=== PATIENT | female | born 1980 | race Asian ===

== ENCOUNTER 2024-11-04 17:28 | Inpatient (IN) | payer OTHER ==
[2024-11-04] MEDS ORDERED: NA CHLORIDE 0.9% 1,000 ML ONE ×2 (18:27→22:37)
[2024-11-04] MEDS ORDERED: ONDANSETRON 4 MG/2 ML VIAL ONE (18:27)
[2024-11-04] MEDS ORDERED: KETOROLAC 30 MG/ML INJ ONE (18:27)
[2024-11-04 18:46] LABS: Absolute Basophils 0.1 K/uL (0-0.5); Absolute Monocytes 0.4 K/uL (0.1-1.3); Absolute Neutrophil 11.3 K/uL (1.8-8.0); Basophils % 0.4 % (0-1.3); Eosinophils % 0.3 % (0-4.4); Hematocrit 37.1 % (36.0-45.0); Hemoglobin 11.3 g/dL (12.0-15.0); Lymphocytes % 8.2 % (15.3-44.8); MCH 21.2 pg (27.0-35.0); MCHC 30.4 g/dL (32.0-36.0); MCV 69.7 fL (80-100); MPV 8.7 fL (7.6-11.3); Monocytes % 2.9 % (3.3-12.3); Neutrophils % 88.2 % (41.7-73.7); Platelets 357 thou/uL (152-406); RBC Red Blood Cell Count 5.33 M/uL (3.86-4.86)
[2024-11-04 19:02] LABS: Albumin/Globulin Ratio 0.8 (1.1-1.8); Anion Gap 9.3 mEq/L (5.0-15.0); Bilirubin Total 0.3 mg/dL (0.2-1.0); Globulin 4.9 g/dL (2.3-3.5); Potassium 3.3 mEq/L (3.5-5.1); Protein, Total 8.9 g/dL (6.4-8.2)
[2024-11-04] MEDS ORDERED: PROMETHAZINE INJ 25 MG/ML AMP ONE (19:29)
[2024-11-04] MEDS ORDERED: MORPHINE 2 MG/ML SYR ONE (19:29)
[2024-11-04 19:30] LABS: Specific Gravity 1.015 (1.005-1.030)
[2024-11-04 19:31] LABS: Specific Gravity 1.014 (1.005-1.030); Sqamous Epithelial <5 /HPF (None Seen); Urine Bacteria None Seen /HPF (<20); Urine Bilirubin NEGATIVE (Negative); Urine Blood Negative (Negative); Urine Clarity Extremely Turbid (Clear); Urine Color Light-Yellow (Yellow); Urine Crystals Unidentified Few /HPF (None Seen); Urine Culture Reflex Order NOT NEEDED; Urine Glucose TRACE (Negative); Urine Ketones 1+ (Negative); Urine Microscopic Reflex YN ORDER UMIC; Urine Mucus Slight /HPF (None Seen); Urine Nitrite NEGATIVE (Negative); Urine Protein TRACE (Negative); Urine RBC <5 /HPF (None Seen); Urine Urobilinogen Normal (Normal); Urine WBC <5 /HPF (<5); Urine pH 8.5 (5.0-7.0)
[2024-11-04 20:00] LABS: Anisocytosis 1+; Blood Morphology Comment NOTED (NOT SEEN); Platelet Estimate ADEQ; Poikilocytosis 1+; White Blood Cell Scan OK (OK)
--- NOTE | 2024-11-04 20:22 | RAD REPORT ---
EXAMINATION: CT ABDOMEN AND PELVIS WITH CONTRAST CLINICAL INDICATION: Female, 43 years old.ABD PAIN TECHNIQUE: CT abdomen and pelvis was performed, after the administration of IV contrast, as per [facility] protocol. Axial, sagittal and coronal reconstructions were obtained. One or more of the following dose reduction techniques were used: Automated exposure control, adjustment of the mA and/o r kV according to patient size, and/or iterative reconstruction. Unless otherwise specified, incidental findings do not require dedicated imaging follow-up. [id number]. COMPARISON: No prior exam. FINDINGS: LOWER CHEST: No acute process identified.No significant pericardial effusion. UPPER GI: No significant abnormality. LIVER: Hepatic steatosis. Benign appearing and/or stable lesions are identified. No suspicious mass.T race perihepatic fluid. GALLBLADDER/BILE DUCTS: Distended gallbladder.?Question trace pericholecystic inflammatory changes. PANCREAS: No mass, ductal dilation, or ban-pancreatic fluid. SPLEEN: Unremarkable. ADRENALS: No adrenal masses. KIDNEYS AND URETERS: No hydronephrosis.No suspicious renal mass. ABDOMINAL AORTA AND OTHER VESSELS: Normal caliber aorta and IVC. PERITONEUM: No abnormal free fluid. No free air. LYMPH NODES: No pathologic lymphadenopathy. ABDOMINAL WALL: Unremarkable SMALL BOWEL/COLON: Small bowel has normal course and caliber. No colonic wall thickening or pericolon ic inflammatory changes.Nonvisualized appendix but no secondary signs of acute appendicitis. URINARY BLADDER: Underdistended but grossly unremarkable. REPRODUCTIVE ORGANS: No pathologic process. MUSCULOSKELETAL: No acute or suspicious osseous abnormality. Mild disc height loss L4-5 and L5-S1. ADDITIONAL FINDINGS: None. IMPRESSION: Distended gallbladder with questionable trace pericholecystic edema. Correlate with LFTs. Consider ri t upper quadrant ultrasound for further evaluation. Also noted is trace perihepatic free fluid which is nonspecific.
--- NOTE | 2024-11-04 21:00 | RAD REPORT ---
Abdomen Exam Limited: 11/04/2024 8:24 PM CLINICAL HISTORY: ABD PAIN STUDY: Limited right upper quadrant ultrasound of abdomen. COMPARISON: Prior films compared to CT Abdomen study dated same-day FINDINGS: Liver: Limited evaluation but grossly unremarkable. Bile ducts: No intrahepatic or extrahepatic biliary ductal dilatation. Common bile duct measures 4 mm. Gallbladder: Distended gallbladder with shadowing gallstones and mild gallbladder wall thickening. Ga llbladder wall measures 4 mm. No sonographic Boyle's sign was reported. IMPRESSION: Distended gallbladder with cholelithiasis and mild gallbladder wall thickening. No sonographic Boyle 's sign reported. The findings are equivocal for acute cholecystitis.
--- NOTE | 2024-11-04 21:30 | EDPHYS ---
Physician Documentation [facility] Name: Joann Srivastava Age: 43 yrs Sex: Female : 1980 Arrival Date: 11/04/2024 Time: 17:28 Bed 25 Private MD: ED Physician David Oropeza HPI: 11/04 22:53 This 43 yrs old Female presents to ER via EMS with complaints of Abdominal Pain. kb 22:53 Patient is a 43-year-old female who presents for upper abdominal pain, nausea and kb vomiting that started after yoga today. States she has been unable to tolerate anything by mouth. Denies fever or diarrhea.. Historical: - Allergies: 17:35 Benadryl; ko1 - Home Meds: 17:35 None [Active]; ko1 - PMHx: 17:35 None; ko1 - Immunization history:: Adult Immunizations unknown. - Infectious Disease History:: Denies. - Social history:: Smoking status: Patient denies any tobacco usage or history of. ROS: 22:53 Constitutional: As per HPI kb Exam: 22:53 Constitutional: This is a well developed, well nourished patient who is awake, alert, kb and in no acute distress. Head/Face: Normocephalic, atraumatic. ENT: Moist Mucous membranes Cardiovascular: Regular rate Respiratory: Respirations even and unlabored. No increased work of breathing. Talking in full sentences Skin: Warm, dry with normal turgor. Normal color. MS/ Extremity: Pulses equal, no cyanosis. Neurovascular intact. Full, normal range of motion. Neuro: Awake and alert, GCS 15, oriented to person, place, time, and situation. 22:53 Abdomen/GI: Inspection: abdomen appears normal, Bowel sounds: normal, Palpation: soft, in all quadrants, mild abdominal tenderness, in the right upper quadrant and left upper quadrant, Vital Signs: 17:32 BP 175 / 98; Pulse 77; Resp 18; Temp 97.9; Pulse Ox 98% ; ko1 20:18 BP 167 / 88; Pulse 84; Resp 16; Pulse Ox 100% on R/A; jb4 20:45 BP 175 / 90; Pulse 74; Resp 16; Pulse Ox 100% on R/A; jb4 23:45 BP 154 / 90; Pulse 51; Resp 16; Pulse Ox 99% on R/A; jb4 MDM: 17:32 Medical Screening Exam initiated kb 22:45 Differential diagnosis: appendicitis, cholecystitis, Cholelithiasis, non-specific abd kb pain, pancreatitis. Data reviewed: vital signs, nurses notes. Consideration of Admission/Observation Patient was admitted/placed on observation. Escalation of care including admission/observation considered. Management of patient was discussed with the following: Hospitalist: Dr. Carmichael accepts patient for admission. Eng[employer]: Dr. Giron accepts patient for consult. Wants patient n.p.o. after midnight and Certified Nurse Practitioner notified to put pt on surgery schedule for 0730 tomorrow. Certified Nurse Practitioner, Anel, notified and will place pt on surgery schedule. Historians other than the Patient: EMS: [facility]. Counseling: I had a detailed discussion with the patient and/or guardian regarding the historical points, exam findings, and any diagnostic results supporting the discharge/admit diagnosis, lab results, radiology results, the need for further work-up and treatment in the hospital. 11/04 17:32 Order name: CBC with Diff; Complete Time: 20:06 kb 11/04 17:32 Order name: CMP; Complete Time: 19:15 kb 11/04 17:32 Order name: Lipase; Complete Time: 19:15 kb 11/04 17:32 Order name: Test, Urine; Complete Time: 19:33 kb 11/04 17:32 Order name: Urinalysis w/ reflexes; Complete Time: 19:33 kb 11/04 20:01 Order name: CBC Smear Scan; Complete Time: 20:06 EDMS 11/04 23:39 Order name: Iron; Complete Time: 00:06 EDMS 11/04 23:39 Order name: Urinalysis w/ reflexes EDMS 11/04 23:39 Order name: CBC with Automated Diff EDMS 11/04 23:39 Order name: CBC with Automated Diff; Complete Time: 13:14 EDMS 11/04 23:39 Order name: Comprehensive Metabolic Panel EDMS 11/04 23:39 Order name: Comprehensive Metabolic Panel; Complete Time: 13:14 EDMS 11/04 23:39 Order name: Magnesium EDMS 11/04 23:39 Order name: Magnesium; Complete Time: 13:14 EDMS 11/04 17:32 Order name: CT Abd/Pelvis - IV Contrast Only; Complete Time: 20:23 kb 11/04 20:24 Order name: US Abdomen Limited; Complete Time: 21:10 kb 11/04 17:32 Order name: IV Saline Lock; Complete Time: 18:39 kb 11/04 17:32 Order name: Labs collected and sent; Complete Time: 18:39 kb 11/04 21:29 Order name: EKG - Nurse/Tech; Complete Time: 22:31 kb Administered Medications: 18:37 Drug: TORadol - Ketorolac IVP 15 mg IVP once Route: IVP; Site: right antecubital; bp 18:37 Drug: Ondansetron IVP 4 mg IVP once; over 2 minutes Route: IVP; Site: right antecubital;bp 18:37 Drug: NS 0.9% IV 1000 ml IV at 1 bolus Per protocol; to be given as a bolus over 60 bp minutes Route: IV; Rate: 1 bolus; Site: right antecubital; 19:39 Drug: Promethazine IVP 12.5 mg IVP once Route: IVP; Site: right antecubital; jb4 19:39 Drug: morphine IVP or IV 2 mg IVP once over 4 mins Route: IVP; Infused Over: 4 mins; jb4 Site: right antecubital; 22:55 Drug: Piperacillin-Tazobactam IVPB 3.375 grams IVPB once over 60 mins; (mix in NS 100 jb4 mL) Route: IVPB; Infused Over: 60 mins; Site: right antecubital; 22:55 Drug: NS 0.9% IV 1000 ml IV at 125 ml/hr once; to be given as a bolus over 60 minutes jb4 Route: IV; Rate: 125 ml/hr; Site: right antecubital; Disposition Summary: 11/04/24 21:29 Hospitalization Ordered Notes: Hospitalization Status: Observation kb Provider: Tony Carmichael Condition: Stable kb Problem: new kb Symptoms: are unchanged kb Bed/Room Type: Standard kb Location: [facility] ER HOLD(11/04/24 21:33) lg3 Room Assignment: ERHOLD-(11/04/24 21:33) lg3 Diagnosis - Acute cholecystitis kb Forms: - Medication Reconciliation Form kb - SBAR form kb - Leadership Thank You Letter kb Addendum: 11/06/2024 15:32 I was immediately available on-site in the Emergency Department for consultation in the m s3 care of the patient. Signatures: Dispatcher [employer] EDAlexandria Matthew, KWAME DOOLEY-Edward Acosta, RN RN jb4 Cruz Olivo, RN RN Jaqueline De Los Santos RN RN lg3 David Oropeza, DO ms3 Yanet Singleton, RN RN ko1 Corrections: (The following items were deleted from the chart) 11/04 17:36 17:35 PSHx: None; ko1 ko1 20:24 20:24 Abdomen Limited+US.RAD.BRZ ordered. EDMS EDMS 21:33 21:29 Telemetry/MedSurg (observation) kb lg3 21:33 21:29 kb lg3 23:43 23:20 Lipase ordered. EDMS EDMS
--- NOTE | 2024-11-04 21:30 | ER ---
Nurse's Notes [facility] Name: Joann Srivastava Age: 43 yrs Sex: Female : 1980 Arrival Date: 11/04/2024 Time: 17:28 Bed 25 Private MD: Diagnosis: Acute cholecystitis Presentation: 11/04 17:32 Chief complaint: EMS states: feeling sick, abdominal pain bilateral upper quadrant, ko1 received zofran 4 mg IM. Coronavirus screen: At this time, the client does not indicate any symptoms associated with coronavirus-19. Ebola Screen: No symptoms or risks identified at this time. Initial Sepsis Screen: Does the patient meet any 2 criteria? No. Patient's initial sepsis screen is negative. Does the patient have a suspected source of infection? No. Patient's initial sepsis screen is negative. Risk Assessment: Do you want to hurt yourself or someone else? Patient reports no desire to harm self or others. Onset of symptoms was November 04, 2024. Care prior to arrival: Medication(s) given: zofran 4 mg. 17:32 Method Of Arrival: EMS: [facility] ko1 17:32 Acuity: ASIF 3 ko1 Triage Assessment: 17:35 General: Appears in no apparent distress. Behavior is calm, cooperative, appropriate ko1 for age. Pain: Complains of pain in abdomen. GI: Reports upper abdominal pain, nausea. Historical: - Allergies: 17:35 Benadryl; ko1 - Home Meds: 17:35 None [Active]; ko1 - PMHx: 17:35 None; ko1 - Immunization history:: Adult Immunizations unknown. - Infectious Disease History:: Denies. - Social history:: Smoking status: Patient denies any tobacco usage or history of. Screenin:00 [facility] ED Fall Risk Assessment (Adult) History of falling in the last 3 months, jb4 including since admission No falls in past 3 months (0 pts) Confusion or Disorientation No (0 pts) Intoxicated or Sedated No (0 pts) Impaired Gait No (0 pts) Mobility Assist Device Used No (0 pt) Altered Elimination No (0 pt) Score/Fall Risk Level 0 - 2 = Low Risk Oriented to surroundings, Maintained a safe environment. Abuse screen: Denies threats or abuse. Nutritional screening: No deficits noted. Tuberculosis screening: No symptoms or risk factors identified. Assessment: 19:00 General: Appears in no apparent distress. uncomfortable, Behavior is calm, cooperative, jb4 appropriate for age. Pain: Complains of pain in right upper quadrant and left upper quadrant Pain does not radiate. Pain currently is 10 out of 10 on a pain scale. Neuro: Level of Consciousness is awake, alert, obeys commands, Oriented to person, place, time, situation. Cardiovascular: Patient's skin is warm and dry. Respiratory: Airway is patent Respiratory effort is even, unlabored, Respiratory pattern is regular, symmetrical. GI: Abdomen is flat, non-distended, Reports upper abdominal pain, nausea. Derm: Skin is intact, Skin is pink, warm \T\ dry. Musculoskeletal: Circulation, motion, and sensation intact. Range of motion: intact in all extremities. 20:00 Reassessment: Patient appears in no apparent distress at this time. Patient and/or jb4 family updated on plan of care and expected duration. Pain level reassessed. Patient is alert, oriented x 3, equal unlabored respirations, skin warm/dry/pink. 21:00 Reassessment: Patient appears in no apparent distress at this time. Patient and/or jb4 family updated on plan of care and expected duration. Pain level reassessed. Patient is alert, oriented x 3, equal unlabored respirations, skin warm/dry/pink. 22:00 Reassessment: Patient appears in no apparent distress at this time. Patient and/or jb4 family updated on plan of care and expected duration. Pain level reassessed. Patient is alert, oriented x 3, equal unlabored respirations, skin warm/dry/pink. 23:00 Reassessment: Patient appears in no apparent distress at this time. Patient and/or jb4 family updated on plan of care and expected duration. Pain level reassessed. Patient is alert, oriented x 3, equal unlabored respirations, skin warm/dry/pink. 11/05 00:00 Reassessment: Patient appears in no apparent distress at this time. Patient and/or jb4 family updated on plan of care and expected duration. Pain level reassessed. Patient is alert, oriented x 3, equal unlabored respirations, skin warm/dry/pink. Vital Signs: 11/04 17:32 BP 175 / 98; Pulse 77; Resp 18; Temp 97.9; Pulse Ox 98% ; ko1 20:18 BP 167 / 88; Pulse 84; Resp 16; Pulse Ox 100% on R/A; jb4 20:45 BP 175 / 90; Pulse 74; Resp 16; Pulse Ox 100% on R/A; jb4 23:45 BP 154 / 90; Pulse 51; Resp 16; Pulse Ox 99% on R/A; jb4 ED Course: 17:31 Patient arrived in ED. mr 17:32 Alexandria Huntley, [facility]AME [facility] kb 17:32 David Oropeza DO is Attending Physician. kb 17:35 Triage completed. ko1 17:35 Arm band placed on right wrist. Patient placed in waiting room, Patient notified of ko1 wait time. 18:17 Cruz Olivo, MAURILIO is Primary Nurse. bp 18:30 Initial lab(s) drawn, by ED staff, sent to lab. Inserted saline lock: 20 gauge in right bp antecubital area, using aseptic technique. Blood collected. Flushed with 10 mL NS. 18:41 Radiology exam delayed due to lab results not completed at this time. (BUN/Creatinine) nj test not completed at this time. 19:00 Patient has correct armband on for positive identification. Bed in low position. Call jb4 light in reach. Side rails up X 1. Provided Education on: plan of care. 20:09 CT Abd/Pelvis - IV Contrast Only In Process Unspecified. EDMS 20:50 US Abdomen Limited In Process Unspecified. EDMS 21:29 Tony Carmichael MD is Hospitalizing Provider. kb 11/05 00:00 No provider procedures requiring assistance completed. Patient admitted, IV remains in jb4 place. Administered Medications: 11/04 18:37 Drug: TORadol - Ketorolac IVP 15 mg IVP once Route: IVP; Site: right antecubital; bp 18:37 Drug: Ondansetron IVP 4 mg IVP once; over 2 minutes Route: IVP; Site: right antecubital;bp 18:37 Drug: NS 0.9% IV 1000 ml IV at 1 bolus Per protocol; to be given as a bolus over 60 bp minutes Route: IV; Rate: 1 bolus; Site: right antecubital; 19:39 Drug: Promethazine IVP 12.5 mg IVP once Route: IVP; Site: right antecubital; jb4 19:39 Drug: morphine IVP or IV 2 mg IVP once over 4 mins Route: IVP; Infused Over: 4 mins; jb4 Site: right antecubital; 22:55 Drug: Piperacillin-Tazobactam IVPB 3.375 grams IVPB once over 60 mins; (mix in NS 100 jb4 mL) Route: IVPB; Infused Over: 60 mins; Site: right antecubital; 22:55 Drug: NS 0.9% IV 1000 ml IV at 125 ml/hr once; to be given as a bolus over 60 minutes jb4 Route: IV; Rate: 125 ml/hr; Site: right antecubital; Outcome: 21:29 Decision to Hospitalize by Provider. kb 11/05 01:36 Admitted to ER Hold. Please see [email or web address] for further documentation. jb4 Condition: stable Discharge instructions given to patient, Instructed on the need for admit, Demonstrated understanding of instructions, 07:01 Patient left the ED. aa10 Signatures: Dispatcher [employer] EDMS Alexandria Huntley, DIRECTOR IT-C DIRECTOR IT-Krystle Bhagat, Reg Reg Edward Mcghee, RN RN jb4 Carson Perez Brian, RN RN Yanet Bailey RN RN ko1 Kerri Orellana, RN RN aa10 Corrections: (The following items were deleted from the chart) 11/04 17:36 17:35 PSHx: None; ko1 ko1
[2024-11-04] MEDS ORDERED: NA CHLORIDE 0.9% 100 ML ONE (22:37)
[2024-11-04] MEDS ORDERED: PIPERACIL/TAZO 3.375 GM VIAL IV ONE (22:38)
--- NOTE | 2024-11-04 23:23 | P.HP ---
Certification for Inpatient Patient admitted to: Inpatient With expected LOS: >2 Midnights Practitioner: I am a practitioner with admitting privileges, knowledge of patient current condition, hospital course, and medical plan of care. Services: Services provided to patient in accordance with Admission requirements found in Title 42 Section 412.3 of the Code of Federal Regulations Patient History Date of Service: 11/05/24 Reason for admission: abdominal pain History of Present Illness: 43-year-old female with history of iron deficiency anemia presents with 1 day history of epigastric pain nausea and vomiting. She reports symptoms started around noon today. Describes epigastric. Denies any fevers. Denies any diarrhea. She does report having some recent shortness of breath. She states that when she lived in [place] she had to have iron replacement in the past. In the ER patient had imaging including CT abdomen pelvis was noted to have concern for acute cholecystitis. She also received Zofran 4 mg today. She continues to have some discomfort. Surgery was called and recommended admission for cholecystitis. Allergies diphenhydramine [From Benadryl] Allergy (Verified 11/05/24 02:28) Hives Review of Systems 10-point ROS is otherwise unremarkable Gastrointestinal: Nausea, Abdominal Pain Physical Examination - Physical Exam General: Alert, Oriented x3 HEENT: Atraumatic, Normocephalic Respiratory: Clear to auscultation bilaterally, Normal air movement Cardiovascular: Regular rate/rhythm, Normal S1 S2 Gastrointestinal: Normal bowel sounds, Tenderness Musculoskeletal: No clubbing, No swelling Integumentary: No rashes Neurological: Normal speech - Studies Laboratory Data (last 24 hrs) 11/04/24 11/04/24 18:25 18:25 WBC 12.80 H Hgb 11.3 L Hct 37.1 Plt Count 357 Sodium 136 Potassium 3.3 L BUN 7 Creatinine 0.76 Glucose 145 H Total Bilirubin 0.3 AST 19 ALT 32 Alkaline Phosphatase 96 Lipase 27 Assessment and Plan - Problems (Diagnosis) (1) Cholecystitis Current Visit: Yes Status: Acute (2) Microcytic anemia Current Visit: Yes Status: Acute (3) Hypokalemia Current Visit: Yes Status: Acute (4) Nausea & vomiting Current Visit: Yes Status: Acute - Plan 43-year-old female presents with abdominal pain epigastric, nausea and vomiting Acute cholecystitis Epigastric abdominal pain Nausea and vomiting Hypokalemia History of microcytic anemia Plan: Admit to medical floor N.p.o. Fluids As needed antiemetics As needed analgesics Replace potassium Check iron levels Surgery has been called in the ER DVT: SCDs - Advance Directives Does patient have a Living Will: No Does patient have a Durable POA for Healthcare: No
[2024-11-04] MEDS ORDERED: MORPHINE 2 MG/ML SYR IV PRN (23:37)
[2024-11-04] MEDS: KCL 20 MEQ/100 mL IVPB 20 MEQ/100 ML BAG IV SCH (23:45)
[2024-11-04] MEDS: NA CHLORIDE 0.9% 1,000 ML IV SCH (23:45)
[2024-11-05 01:23] VITALS: BMI 27.4
[2024-11-05] MEDS: PIPER TAZO 3.375 GM in NA CHLORIDE 0.9% 100 ML IV SCH (02:30)
[2024-11-05] MEDS ORDERED: NA CHLORIDE 0.9% 1,000 ML ONE (02:45)
[2024-11-05] MEDS ORDERED: KCL 20 MEQ/100 mL IVPB 100 ML IV ONE (02:46)
[2024-11-05] MEDS ORDERED: NA CHLORIDE 0.9% 100 ML ONE (02:46)
[2024-11-05] MEDS ORDERED: PIPERACIL/TAZO 3.375 GM VIAL IV ONE (02:47)
[2024-11-05 04:33] LABS: Absolute Eosinophils 0.1 K/uL (0-0.5); Hemoglobin 10.5 g/dL (12.0-15.0); MPV 8.7 fL (7.6-11.3)
[2024-11-05 04:39] LABS: Albumin 3.3 g/dL (3.4-5.0); Albumin/Globulin Ratio 0.8 (1.1-1.8); Anion Gap 7.6 mEq/L (5.0-15.0); Bilirubin Total 0.6 mg/dL (0.2-1.0); Globulin 4.2 g/dL (2.3-3.5); Magnesium 2.1 mg/dL (1.6-2.4); Potassium 3.6 mEq/L (3.5-5.1); Protein, Total 7.5 g/dL (6.4-8.2)
[2024-11-05 04:40] LABS: Absolute Basophils 0.1 K/uL (0-0.5); Absolute Monocytes 0.9 K/uL (0.1-1.3); Absolute Neutrophil 9.9 K/uL (1.8-8.0); Basophils % 0.5 % (0-1.3); Eosinophils % 0.6 % (0-4.4); Hematocrit 34.6 % (36.0-45.0); Lymphocytes % 15.4 % (15.3-44.8); MCH 21.3 pg (27.0-35.0); Monocytes % 7.2 % (3.3-12.3); Neutrophils % 76.3 % (41.7-73.7); Platelets 332 thou/uL (152-406); RBC Red Blood Cell Count 4.95 M/uL (3.86-4.86); Red Cell Distribution Width 17.6 % (12.1-15.2)
[2024-11-05 04:46] LABS: MCHC 30.4 g/dL (32.0-36.0)
--- NOTE | 2024-11-05 07:06 | P.CNS ---
Date of Consult: 11/05/24 Reason for consult: Abdominal pain History of present illness: Patient is a 43-year-old female presents to the emergency room with 1 day history of epigastric and right upper quadrant abdominal pain associated with nausea, vomiting, bloating, belching and heartburn. Patient denies any sore throat, runny nose, cough, headaches, dizzi ness, chest pain or fever. Patient does have chills from time to time. Patient denies diarrhea, constipation, blood per rectum, dysuria or hematuria. Review of systems: Otherwise unremarkable Past medical history: Iron deficiency anemia for which she has been given iron supplements in the past Past surgical history: Arm surgery Allergies: Ibuprofen Social history: Denies smoking or drinking Family history: Noncontributory Vital signs: Stable, afebrile Physical exam: Awake, alert and oriented x 3 Head and neck exam: No neck masses, no JVD, throat clear, no icterus and neck supple Chest: Clear Heart: S1-S2 Abdomen: Soft, nondistended, positive bowel sounds, positive tenderness in the epigastric and right upper quadrant region with minimal rebound and no rigidity or guarding Extremity: Neurovascular intact Neuro: Nonfocal Diagnostic data: Ultrasound and CAT scan consistent with early acute cholecystitis and cholelithiasis, LFTs and lipase within normal limit, remainder of the labs reviewed Assessment: Acute cholecystitis and cholelithiasis Plan/recommendation: Admit, n.p.o., IV fluids, IV antibiotics and to the OR for laparoscopic cholecystectomy possible open. Patient understands risk, benefits and alternatives and agrees to procedure. CC:
[2024-11-05] MEDS: Ringers Lactate 1,000 ML IV ONE ×2 (07:15→08:30)
[2024-11-05] MEDS ORDERED: ROCURONIUM 50 MG/5 ML VIAL IV ONE (07:28)
[2024-11-05] MEDS ORDERED: ONDANSETRON 4 MG/2 ML VIAL ONE (07:28)
[2024-11-05] MEDS ORDERED: FENTANYL CITR 100 MCG/2 ML ONE (07:28)
[2024-11-05] MEDS ORDERED: LIDOCAINE 2% MPF 5 ML VIAL ONE (07:28)
[2024-11-05] MEDS ORDERED: dexAMETHasone 10 MG/ML VIAL ONE (07:28)
[2024-11-05] MEDS ORDERED: propofoL 200 MG/20 ML VIAL IV ONE (07:28)
[2024-11-05] MEDS ORDERED: MIDAZOLAM HCL 2 MG/2 ML INJ ONE (07:28)
[2024-11-05] MEDS ORDERED: KETOROLAC 30 MG/ML INJ ONE (07:28)
[2024-11-05] MEDS: SUCCINYLCHOLINE 20 MG/ML (10 ML) IV ONE (07:35)
[2024-11-05] MEDS: CEFOXITIN SODIUM 1 GM/VIAL ONE (07:38)
[2024-11-05] MEDS: BUPIVACAINE 0.5% PF 10 ML VIAL ONE (08:10)
[2024-11-05] MEDS ORDERED: NS 0.9% VIAL 10 ML ONE ×2 (08:16→08:54)
[2024-11-05] MEDS ORDERED: VECURONIUM 10 MG/VIAL IV ONE (08:17)
[2024-11-05] MEDS ORDERED: GLYCOPYRROLATE 0.2 MG/ML SYR ONE (08:43)
[2024-11-05] MEDS ORDERED: NEOSTIGMINE 1 MG/ML -10 ML VIAL ONE (08:43)
[2024-11-05] MEDS ORDERED: Phenylephrine HCl 10 MG/ML 1 ML VIAL ONE (08:54)
[2024-11-05] MEDS: FLU (Fluarix Triv) TS24-25(6MOS UP)/PF 45 MCG/0.5 ML Syringe IM ONE (09:00)
[2024-11-05 09:20] VITALS: O2SAT 100
--- NOTE | 2024-11-05 09:21 | P.OP ---
Date of Service: 11/05/24 Preop diagnosis: Acute cholecystitis and cholelithiasis Postop diagnosis: Same Procedure performed: Laparoscopic cholecystectomy Surgeon: Rafa Giron MD Animal Care Technician: None Estimated blood loss: Minimal Specimen: Gallbladder Findings: As above Anesthesia: General Complications: None Drains: None Fluids and blood products: Nonapplicable Disposition: Recovery room Operative note: Patient brought to the OR and placed in the supine position. General anesthesia began. Patient prepped and draped in the usual sterile fashion. Marcaine 0.5% infiltrated locally. 15 blade used to make a 1 cm infraumbilical midline incision. Subcutaneous tissue divided and bleeding controlled with cautery. Fascia identified and divided. #1 Vicryl stay suture placed. Peritoneal cavity entered with sharp and blunt dissection. 12 mm trocar placed into the peritoneal cavity under direct vision. Pneumoperitoneum established. Three 5 mm trocars placed under direct vision. 1 trocar placed in the epigastric region just to the right midline. 2 trocars placed in the right subcostal region. The gallbladder was acutely inflamed and distended. Gallbladder was aspirated of bile. Fundus was identified and retracted superiorly. Infundibulum identified and retracted inferolaterally. Cystic duct and cystic artery clearly identified with blunt dissection. Clips placed and both structures divided. Cautery used to remove the gallbladder from the liver bed. Gallbladder retrieved to the umbilicus via Endo Catch bag. Pneumoperitone um reestablished. Right upper quadrant irrigated. No evidence of bleeding or bile leakage appreciated. All trocars removed under direct vision. Stay sutures used to reapproximate the fascial defect. Subcutaneous wounds irrigated and bleeding controlled cautery. 3-0 chromic used to reapproximate subcutaneous tissue and close skin. Sterile dressing applied. Patient awakened and taken to recovery room in good general condition. CC:
[2024-11-05] MEDS: HYDROMORPHONE HCL 1 MG/ML INJ ONE (10:10)
--- NOTE | 2024-11-05 11:28 | EKG ---
Test Date: 2024-11-04 Test Time: 22:23:41 Demurrage Clerk: BRAD MEASUREMENT RESULTS: Intervals: Rate: 81 DC: 138 QRSD: 92 QT: 382 QTc: 443 [place]: P: 13 DC: 138 QRS: -1 T: 2 INTERPRETIVE STATEMENTS: Normal sinus rhythm Normal ECG No previous ECG available for comparison Electronically Signed On 11-05-24 11:27:24 [employer] by Felix Nice
[2024-11-05] MEDS: HYDROMORPHONE HCL 1 MG/ML INJ IV PRN (13:46)
--- NOTE | 2024-11-05 15:04 | P.PN ---
Subjective Date of Service: 11/05/24 Chief Complaint: abdominal pain Status post lap cholecystectomy today. No recorded fever. Physical Examination - Vital Signs Temperature: 98.1 F Blood Pressure: 132/68 Pulse: 70 Respirations: 14 Pulse Ox (%): 96 - Studies Laboratory Data (last 24 hrs) 11/04/24 11/04/24 11/04/24 18:25 18:25 18:25 WBC 12.80 H Hgb 11.3 L Hct 37.1 Plt Count 357 Sodium 136 Potassium 3.3 L BUN 7 Creatinine 0.76 Glucose 145 H Total Bilirubin 0.3 AST 19 ALT 32 Alkaline Phosphatase 96 Lipase Cancelled 27 Assessment And Plan - Plan Physical examination General: Alert and oriented x3, NAD, HEENT: Conjunctiva not pale, anicteric sclera Neck: Supple, no elevated JVD Heart: Heart sounds 1 and 2 normal, regular rhythm, normal rate, no pedal edema Lungs: Clear to auscultation bilaterally, adequate breath sounds bilaterally, no rhonchi or crackles. Abdomen: Soft, nondistended, nontender, normal bowel sounds. Extremities: No tenderness, no deformity Skin: Normal skin turgor, no rash, no nodules or ulcers. Neuro: No focal motor deficit. Normal speech. Psychiatry: Normal mood, no agitation. Diagnosis Acute cholecystitis Hypokalemia History of microcytic anemia Plan: Continue IV antibiotics. Clear liquid diet Continue IV fluid Antiemetics as needed Analgesics as needed Monitor and replace potassium as need. Check iron level. Dr. Giron is following and anticipating discharge in a.m. DVT prophylaxis: Lovenox.
[2024-11-06] MEDS: HYDROCODONE/APAP 7.5/325 MG TAB PO PRN (00:18)
[2024-11-06 05:51] LABS: Absolute Basophils 0.1 K/uL (0-0.5); Absolute Lymphocytes (CBC) 2.1 K/uL (0.7-4.9); Absolute Monocytes 0.9 K/uL (0.1-1.3); Absolute Neutrophil 8.2 K/uL (1.8-8.0); Basophils % 0.8 % (0-1.3); Eosinophils % 0.2 % (0-4.4); Hematocrit 29.3 % (36.0-45.0); Hemoglobin 8.8 g/dL (12.0-15.0); Lymphocytes % 18.6 % (15.3-44.8); MCH 21.5 pg (27.0-35.0); MCHC 30.2 g/dL (32.0-36.0); MCV 71.3 fL (80-100); MPV 8.9 fL (7.6-11.3); Monocytes % 8.1 % (3.3-12.3); Neutrophils % 72.3 % (41.7-73.7); Platelets 252 thou/uL (152-406); RBC Red Blood Cell Count 4.12 M/uL (3.86-4.86); Red Cell Distribution Width 17.5 % (12.1-15.2)
[2024-11-06] MEDS: ENOXAPARIN 40 MG/0.4 ML SQ SCH (08:25)
--- NOTE | 2024-11-06 09:00 | P.DS ---
Admission Date: 11/04/24 Discharge Date: 11/07/24 Disposition: ROUTINE DISCHARGE Discharge Condition: FAIR Reason for Admission: abdominal pain Brief History of Present Illness: 43-year-old female with history of iron deficiency anemia presents with 1 day history of epigastric pain nausea and vomiting. She reported having some recent shortness of breath. She states that when she lived in [place] she had to have iron replacement in the past. In the ER patient had imaging including CT abdomen pelvis which showed concern for acute cholecystitis. Surgery was called and recommended admission for cholecystitis. Hospital Course: Acute cholecystitis Iron deficiency anemia. Patient was admitted to the medical floor, she was evaluated by surgery Dr. Giron who performed lap for scopic cholecystectomy. Patient was monitored overnight. Patient was re-evaluated the following morning by me and Dr. Giron at which point she complained of uncontrolled pain and some shortness of breath. CTA thorax was done which was negative for pulm embolism, it demonstrated mild bilateral lower lobe opacities which may indicate atelectasis versus pneumonia. EKG unremarkable . Patient was given a dose of IV Lasix. She was on IV Zosyn throughout the hospital stay. She also complained of nasal congestion. Vitals are stable. Patient is discharged with Augmentin, also prescribed Nasonex and cetirizine for upper respiratory symptoms. Patient informed to follow-up with Dr. Giron within 1 week. Vital Signs/Physical Exam: Temp Pulse Resp BP Pulse Ox 98.0 F 46 L 20 117/50 L 95 11/06/24 08:00 11/06/24 08:00 11/06/24 08:00 11/06/24 08:00 11/06/24 08:00 General: Alert, In no apparent distress, Oriented x3 HEENT: Mucous membr. moist/pink Neck: Supple, JVD not distended Respiratory: Clear to auscultation bilaterally, Normal air movement Cardiovascular: No edema, Regular rate/rhythm, Normal S1 S2 Gastrointestinal: Normal bowel sounds, Soft and benign, Non-distended Musculoskeletal: No swelling, No tenderness Integumentary: No rashes, No cyanosis Neurological: Normal speech, Normal strength at 5/5 x4 extr, Cranial nerves 3-12 intact Laboratory Data at Discharge: WBC 11.40 thou/uL (4.3-10.9) H 11/06/24 05:10 Hgb 8.8 g/dL (12.0-15.0) L D 11/06/24 05:10 Hct 29.3 % (36.0-45.0) L 11/06/24 05:10 Plt Count 252 thou/uL (152-406) 11/06/24 05:10 Sodium 138 mEq/L (136-145) 11/05/24 03:55 Potassium 3.6 mEq/L (3.5-5.1) 11/05/24 03:55 BUN 6 mg/dL (7-18) L 11/05/24 03:55 Creatinine 0.62 mg/dL (0.55-1.02) 11/05/24 03:55 Glucose 121 mg/dL (74-106) H 11/05/24 03:55 Magnesium 2.1 mg/dL (1.6-2.4) 11/05/24 03:55 Total Bilirubin 0.6 mg/dL (0.2-1.0) 11/05/24 03:55 AST 14 U/L (15-37) L 11/05/24 03:55 ALT 26 U/L (13-56) 11/05/24 03:55 Alkaline Phosphatase 76 U/L (45-117) D 11/05/24 03:55 Lipase 27 U/L (13-75) 11/04/24 18:25 Lipase Cancelled 11/04/24 18:25 Home Medications: Amox/Clavulanate [Augmentin 875-125 Tab] 1 each PO BID #14 tab 11/06/24 Hydrocodone 7.5/APAP 325 [[place] 7.5/325 mg*] 1 tab PO Q4H PRN #15 tab 11/06/24 Loratadine [Claritin] 10 mg PO DAILY PRN #30 tab 11/07/24 Mometasone Furoate [Nasonex 24Hr Allergy] 2 puff IN BID #1 ea 11/07/24 New Medications: Amox/Clavulanate [Augmentin 875-125 Tab] 1 each PO BID #14 tab Loratadine [Claritin] 10 mg PO DAILY PRN #30 tab PRN Reason: Nasal Congestion Mometasone Furoate [Nasonex 24Hr Allergy] 2 puff IN BID #1 ea Hydrocodone 7.5/APAP 325 [[place] 7.5/325 mg*] 1 tab PO Q4H PRN #15 tab PRN Reason: Pain Scale 5-7 (Moderate) Physician Discharge Instructions: May shower with dressing on in a.m. Remove outer dressing after shower Keep Steri-Strips on at all times Incentive spirometry as instructed Resume home meds and diet Activity as tolerated, no heavy lifting Follow-up my office 1 week, call for appointment Antibiotics and pain medicine per the hospitalist team Diet: Regular Activity: No lifting more than 10 lbs Followup: Arianna Angel MD [ACTIVE - CAN ADMIT] - Rafa Giron MD [ACTIVE - CAN ADMIT] - 1 Week Time spent managing pt's care (in minutes): 33
--- NOTE | 2024-11-06 10:54 | RAD REPORT ---
EXAMINATION: CTA CHEST PE CLINICAL INDICATION: Shortness of breath TECHNIQUE: 100 cc 370 Isovue administered intravenously. This examination was performed according to an angiographic protocol with 3D post-processing. This involves 3D reconstructions, MIPs, volume rendered images and/or shaded surface rendering. One or more of the following dose reduction techniqu es were used: Automated exposure control, adjustment of the mA and/or kV according to patient size, and/or iterative reconstruction. Unless otherwise specified, incidental findings do not require dedic ated imaging follow-up. [id number]. COMPARISON: No prior exam. FINDINGS: A pulmonary embolus is not seen. An aortic aneurysm not noted. No pleural effusion. No pericardial effusion. Mild bilateral lower lobe opacities IMPRESSION: No evidence of a pulmonary embolism Mild bilateral lower lobe opacities may represent atelectasis or pneumonia
--- NOTE | 2024-11-06 11:26 | PN ---
Subjective: The patient is complaining of low heart rate and shortness of breath, some abdominal dontae n, and occasional nausea. Objective: Her vital signs are significant for pulse rate of 46, but blood pressure is adequate. He r laboratory data shows white count to be 11.4, the left shift has improved. Her electrolytes are re viewed as well. Her iron level is 30. Her transferrin saturation is 7.2. Her abdomen is soft, nond istended. Positive bowel sounds. Mild incisional tenderness. Assessment: Status post laparoscopic cholecystectomy for acute cholecystitis and cholelithiasis and history of anemia. Complaining of some nonspecific respiratory cardiac issues. Recommendation: Discussed the case in detail with Dr. Keys. We will get an EKG, rule out PE per p rotocol, manage her pain and nausea parenterally for the time being. When the patient is medically e valuated and cleared, the patient is cleared from surgical point of view for discharge. Discharge in structions given in detail to the patient with followup. /MODL Voice ID: [id number] Report ID: [id number]
--- NOTE | 2024-11-06 14:14 | P.PN ---
Subjective Date of Service: 11/06/24 Chief Complaint: abdominal pain Status post lap cholecystectomy, 1 day after surgery. No recorded fever. Pt complaining of shortness of breath and pain. Physical Examination - Vital Signs Temperature: 98.0 F Blood Pressure: 122/61 Pulse: 50 Respirations: 18 Pulse Ox (%): 96 Assessment And Plan - Plan Physical examination General: Alert and oriented x3, NAD, HEENT: Conjunctiva not pale, anicteric sclera Neck: Supple, no elevated JVD Heart: Heart sounds 1 and 2 normal, regular rhythm, normal rate, no pedal edema Lungs: Mild right-sided crackles, adequate breath sounds bilaterally, no rhonchi. Abdomen: Soft, nondistended, nontender, normal bowel sounds. Extremities: No tenderness, no deformity Skin: Normal skin turgor, no rash, no nodules or ulcers. Neuro: No focal motor deficit. Normal speech. Psychiatry: Normal mood, no agitation. Diagnosis Acute cholecystitis Hypokalemia History of microcytic anemia/iron deficiency anemia Right lower lobe atelectasis Plan: CTA thorax negative for pulmonary embolism Continue IV antibiotics. Incentive spirometer Diet advanced to soft consistency Discontinue IV fluid. Trial of IV Lasix Antiemetics as needed Analgesics as needed Monitor and replace potassium as need. Patient with iron deficiency. Follow-up as outpatient with hematology oncology for iron deficiency. Dr. Giron is following. DVT prophylaxis: Lovenox.
[2024-11-06] MEDS: FUROSEMIDE 40 MG/4 ML VIAL IV ONE (14:48)
[2024-11-06] MEDS: ONDANSETRON 4 MG/2 ML VIAL IV PRN (18:12)
[2024-11-07] MEDS: PHENOL 1.4% ORAL SPRAY 180ML MM PRN (05:05)
[2024-11-07 06:41] VITALS: TEMP 98.1
--- NOTE | 2024-11-07 06:59 | RAD REPORT ---
EXAM: Chest Single View HISTORY: pleuritic pain, SOB COMPARISON: Chest CT yesterday FINDINGS: LUNGS/PLEURA: Prominence of the pulmonary interstitium. Possible eventration of the right hemidiaphra gm. MEDIASTINUM: The mediastinal silhouette is within normal limits. CARDIAC: Enlarged cardiopericardial silhouette. This may be magnified by low lung volumes. UPPER ABDOMEN: No significant abnormality. BONES: No acute abnormality. LINES/TUBES/OTHER: N/A IMPRESSION: Prominence of the central pulmonary vasculature could represent vascular congestion. The cardioperica rdial silhouette is enlarged. Could consider echocardiography. Basilar airspace disease and small effusions identified on the CT from 11/06/2024 are not readily apparent on chest radiograph.
[2024-11-07 10:05] VITALS: BP 150/84
--- NOTE | 2024-11-11 12:56 | EKG ---
Test Date: 2024-11-06 Test Time: 11:05:07 Bomb Loader: SON MEASUREMENT RESULTS: Intervals: Rate: 88 OR: 122 QRSD: 90 QT: 350 QTc: 423 [place]: P: 46 OR: 122 QRS: -3 T: -26 INTERPRETIVE STATEMENTS: Sinus rhythm with frequent premature ventricular complexes Low voltage QRS Nonspecific T wave abnormality Abnormal ECG Compared to ECG 11/04/2024 22:23:41 Ventricular premature complex(es) now present Low QRS voltage now present T-wave abnormality now present Electronically Signed On 11-11-24 12:48:41 DIRECTOR OF REGULATORY AFFAIRS by Felix Nice
== END 2024-11-07 11:03 | disposition home or self-care (01) | DRG 419 ==
LOC: ER 17:28 → ERHOLD 23:25 → 2ND 11-05 10:57
PROVIDERS: ADMIT Internal Medicine; ATTEND Internal Medicine
PROC: 0FT44ZZ Resection of Gallbladder, Percutaneous Endoscopic Approach (ICD-10-PCS; principal; 2024-11-05 07:30)
DX: K80.00 Calculus of gallbladder with acute cholecystitis without obstruction (principal); E87.6 Hypokalemia; D50.9 Iron deficiency anemia, unspecified; Z88.8 Allergy status to other drugs, medicaments and biological substances; Z79.899 Other long term (current) drug therapy
CPT/HCPCS: 36415; 71045; 71275; 74177; 76705; 80053; 81001; 81025; 83540; 83690; 83735; 84466; 85025; 88304; 93005; 94010; 96374; 96375; 99285; A4216; J0694; J1100; J1171; J1650; J1940; J2003; J2250; J2270; J2371; J2405; J2543; J2550; J2704; J2710; J3010; J3480; J7030; J7120; Q9967